=== PATIENT | female | born 1970 | race African-American/Black ===

== ENCOUNTER 2017-04-27 11:25 | Emergency (ER) | payer SELFPAY ==
[~2017-04-27] VITALS: Ht 162.6 cm; Wt 104.3 kg
[~2017-04-27 11:25] MED LIST: CYCLOBENZAPRINE10 MG ORAL; IBUPROFEN800 MG ORAL
[2017-04-27] MEDS ORDERED: PROAIR HFA8.5 GM INH (11:50)
[2017-04-27] MEDS ORDERED: Ketorolac 30mg Inj IM ONE (12:15)
[2017-04-27] MEDS ORDERED: ROBAXIN-750750 MG PO (12:16)
[2017-04-27] MEDS ORDERED: NAPROXEN500 M2 ORAL (12:16)
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
[2017-04-27 12:30] VITALS: BP_SYST 122; BP_SYST 132; BP_DIAS 85
== END 2017-04-27 12:30 | disposition home or self-care (01) ==
LOC: EMR 12:10
DX: S16.1XXA Strain of muscle, fascia and tendon at neck level, initial encounter (principal); S39.012A Strain of muscle, fascia and tendon of lower back, initial encounter; V43.52XA Car driver injured in collision with other type car in traffic accident, initial encounter; Y93.9 Activity, unspecified; Y92.410 Unspecified street and highway as the place of occurrence of the external cause; M62.830 Muscle spasm of back
CPT/HCPCS: 96372; 99284; J1885

== ENCOUNTER 2017-11-11 05:55 | Emergency (ER) | payer MEDICAID ==
[~2017-11-11] VITALS: Ht 160 cm; Wt 120.2 kg
[~2017-11-11 05:55] MED LIST changes: +NAPROXEN500 M2 ORAL; +PROAIR HFA8.5 GM INH; +ROBAXIN-750750 MG PO
[2017-11-11 06:39] VITALS: BP 126/80
[2017-11-11] MEDS ORDERED: PEROXIDE SORE236 ML MM (06:39)
[2017-11-11] MEDS ORDERED: IBUPROFEN600 MG ORAL (06:39)
--- NOTE | 2017-11-11 06:40 | Emergency Room Report ---
History of Present Illness General Chief Complaint: Sore Throat Source: Patient, Medical Record Present Illness HPI Is a 47-year-old female with no significant past medical history. She presents with chief complaint of sore throat. Onset this morning when she woke up. She has chronic sinus congestion. No cough or fever or chills. No chest pain. Has abdominal cramps her menstrual. Pain is 7/10. Allergies: Coded Allergies: No Known Allergies (Unverified , 06/21/16) Patient History Past Medical History: see triage record, old chart reviewed Past Surgical History: other Pertinent Family History: none Social History: Denies: smoking Last Menstrual Period: 11/11/17 Now: No : 5 Para: 5 Immunizations: other Reviewed Nursing Documentation: PMH: Agreed, PSxH: Agreed Nursing Documentation-PMH Hx Asthma: Yes Review of Systems Eye: Denies: eye pain, blurred vision ENT: Reports: throat pain, Denies: ear pain, nose congestion, throat swelling Respiratory: Denies: cough, shortness of breath Cardiovascular: Denies: chest pain, palpitations Gastrointestinal: Denies: abdominal pain, diarrhea, nausea, vomiting Musculoskeletal: Denies: back pain, joint pain Skin: Denies: rash Neurological: Denies: headache, numbness Endocrine: Denies: increased thirst, increased urine Hematologic/Lymphatic: Denies: easy bruising All Other Systems: negative except mentioned in HPI Physical Exam Vital Signs Date Time Temp Pulse Resp B/P (MAP) Pulse Ox O2 Delivery O2 Flow Rate FiO2 11/11/17 06:19 97.9 78 20 126/80 97 Room Air vitals normal Sp02 EP Interpretation: reviewed, normal General Appearance: well appearing, no apparent distress, alert Head: normocephalic, atraumatic Eyes: bilateral eye PERRL, bilateral eye EOMI ENT: hearing grossly normal, other - Patient with small pimply lesion on soft and hard palate. No tonsillar exudates. No trismus. Neck: full range of motion, supple, no meningismus Respiratory: chest non-tender, lungs clear, normal breath sounds Cardiovascular #1: regular rate, rhythm, no murmur Gastrointestinal: normal bowel sounds, non tender, no mass, no organomegaly, no bruit, non-distended Musculoskeletal: back normal, gait/station normal, normal range of motion Psychiatric: mood/affect normal Skin: warm/dry Medical Decision Making Diagnostic Impression: Primary Impression: Herpangina ER Course Patient presents with a viral illness. No evidence of bacterial infection. We' ll discharge him. Last Vital Signs Date Time Temp Pulse Resp B/P (MAP) Pulse Ox O2 Delivery O2 Flow Rate FiO2 11/11/17 06:19 97.9 78 20 126/80 97 Room Air Status: unchanged Disposition: HOME, SELF-CARE Condition: Stable Scripts Hydrogen Peroxide (Peroxide Sore Mouth Cleanser) 236 Ml Solution 20 ML MM TID, #240 ML Prov: FOREIGN PAULINO M.D. 11/11/17 Ibuprofen* (MOTRIN*) 600 Mg Tablet 600 MG ORAL THREE TIMES A DAY, #30 TAB 0 Refills Prov: FOREIGN PAULINO M.D. 11/11/17 Additional Instructions: Followup with your Dr. in 7 days. Return if symptom worsen. FOREIGN PAULINO M.D. Nov 11, 2017 06:40
== END 2017-11-11 06:45 | disposition home or self-care (01) ==
LOC: EMR 06:31
DX: B08.5 Enteroviral vesicular pharyngitis (principal); J45.909 Unspecified asthma, uncomplicated
CPT/HCPCS: 99283

== ENCOUNTER → 2019-01-27 | Emergency (ER) | payer MEDICAID ==
[~2019-01-27] VITALS: Ht 160 cm; Wt 136.1 kg
[~2019-01-27] MED LIST changes: +ALBUTEROL SULF8.5 GM INH; +Albuterol/Ipratropium 3ml neb HHN ONE; +Benzonatate 100mg Perles ORAL ONE; +IBUPROFEN600 MG ORAL; +PEROXIDE SORE236 ML MM; +PREDNISONE20 MG ORAL; +TESSALON PERLE100 MG ORAL
--- NOTE | 2019-01-27 12:29 | NUR ---
ED Nurse Note: PT WALKED IN TO ER TODAY FROM HOME. AOX4. PT C/O PERSISTENT, PAINFUL, NONPRODUCTIVE COUGH X 4 DAYS. PT DENIES ANY PAIN AT REST. LUNG SOUNDS CLEAR IN ALL LOBES. NO SIGNS OF RESPIRATORY DISTRESS OR RETRACTIONS NOTED. RR18 @ 98% O2 SATURATION ON RA.
[2019-01-27 12:31] VITALS: BP 126/74
--- NOTE | 2019-01-27 12:35 | NUR ---
ED Nurse Note: RT CALLED FOR BREATHING TX.
--- NOTE | 2019-01-27 12:41 | Emergency Room Report ---
History of Present Illness General Chief Complaint: Upper Respiratory Illness Source: Patient Present Illness HPI 48-year-old female patient presents ER complaining of cough times 4 days. Reports chest itchiness and pain with cough. Reports cough with sputum. Denies hemoptysis. Denies recent travel outside the country. Reports shortness of breath during this time. Reports history of asthma and bronchitis , states that she was using her inhaler with mild relief of symptoms. Reports has not been taking any medications. Denies fever. Denies history of heart attack or stroke. Denies calf pain. Denies recent periods of immobilization. Reports up-to-date on vaccinations. Reports similar symptoms approximately 2 weeks ago, states that she had a cough for 1 month during that time. Denies history of heart disease. Denies other aggravating or relieving factors. States that she does not like taking medications at home for relief of symptoms. Patient is requesting work note. Denies injury or accident. Allergies: Coded Allergies: No Known Allergies (Unverified , 06/21/16) Patient History Past Medical History: see triage record Reviewed Nursing Documentation: PMH: Agreed; PSxH: Agreed Nursing Documentation-PMH Past Medical History: No History, Except For Hx Asthma: Yes Review of Systems All Other Systems: negative except mentioned in HPI Physical Exam Vital Signs Date Time Temp Pulse Resp B/P (MAP) Pulse Ox O2 Delivery O2 Flow Rate FiO2 01/27/19 12:22 98.2 105 20 120/70 96 Room Air Sp02 EP Interpretation: reviewed, normal General Appearance: well appearing, no apparent distress, alert, GCS 15, non- toxic Head: normocephalic, atraumatic Eyes: bilateral eye normal inspection, bilateral eye PERRL ENT: hearing grossly normal, normal pharynx, no angioedema, normal voice, TMs + canals normal, uvula midline, moist mucus membranes Neck: full range of motion, no meningismus, no bony tend Respiratory: lungs clear, no rhonchi, no respiratory distress, no accessory muscle use, no wheezing, decreased breath sounds, speaking full sentences, other Cardiovascular #1: regular rate, rhythm, no edema Musculoskeletal: back normal, digits/nails normal, gait/station normal, normal range of motion, non-tender Neurologic: alert, oriented x3, responsive, motor strength/tone normal, sensory intact Psychiatric: mood/affect normal Lymphatic: no adenopathy Medical Decision Making PA Attestation Dr. Walters is my supervising Physician whom patient management has been discussed with. Diagnostic Impression: Primary Impression: Bronchitis ER Course Pt presents to ED c/o cough and shortness of breath. DDX considered but are not limited to asthma, viral URI, influenza, bronchitis, pneumonia. On PE, chest is TTP; chest pain likely musculoskeletal in nature secondary to cough, does not require cardiac workup at this time. Patient instructed to take NSAIDs as needed for pain symptoms. VITAL SIGNS are WNL, patient is afebrile. Ordered breathing treatment and medication. ER COURSE Chest x-ray negative for acute disease, no consolidation consistent with pneumonia, does not require antibiotics at this time. ER precautions given. Patient provided with prednisone Duoneb breathing treatment provided. Following treatment patient states no longer having difficulty with breathing. Lung sounds improved. Patient is resting comfortably in no acute distress. DISCHARGE: -Rx given for Prednisone. -Rx provided for Albuterol MDI. -Rx provided for Tessalon Perles Rx provided for Motrin At this time pt is stable for d/c to home. Patient is resting comfortably in no acute distress, nontoxic appearing, able to answer questions without difficulty. Patient to take medications as instructed Will provide with patient care instructions and any necessary prescriptions. Care plan and follow-up instructions provided. Patient instructed to follow-up with primary care provider in 3 - 5 days. Patient questions asked and answered. Patient reports understanding and agreement to treatment plan. ER precautions given. Patient instructed to return to ER immediately for any new or worsening of symptoms including but not limited to increasing SOB, persistent fever. - Please note that this Emergency Department Report was dictated using [employer] worker technology software, occasionally this can lead to erroneous entry secondary to interpretation by the dictation equipment. Chest X-Ray Diagnostic Results Chest X-Ray Diagnostic Results : Chest X-Ray Ordered: Yes # of Views/Limited/Complete: 1 View Indication: Chest Pain EP Interpretation: Yes BEBA Xray: Interpretation reviewed, by supervising MD, and agrees with findings. Interpretation: no consolidation, no effusion, no pneumothorax, no acute cardiopulmonary disease Impression: No acute disease BEBA ScribKody Bellamy PA-C Last Vital Signs Date Time Temp Pulse Resp B/P (MAP) Pulse Ox O2 Delivery O2 Flow Rate FiO2 01/27/19 12:31 98 18 Room Air 01/27/19 12:31 98.4 126/74 98 Status: improved Disposition: HOME, SELF-CARE Condition: Stable Scripts Prednisone* (PREDNISONE*) 20 Mg Tablet 40 MG ORAL DAILY for 4 Days, #8 TAB Prov: Jeronimo Bellamy 01/27/19 Benzonatate* (TESSALON PERLE*) 100 Mg Capsule 100 MG ORAL THREE TIMES A DAY, #30 PERLE Prov: Jeronimo Bellamy 01/27/19 Ibuprofen* (MOTRIN*) 600 Mg Tablet 600 MG ORAL Q8H PRN for For Pain, #30 TAB 0 Refills Prov: Jeronimo Bellamy 01/27/19 Albuterol Sulfate* (ALBUTEROL SULFATE MDI*) 8.5 Gm Hfa.aer.ad 2 PUFF INH Q6H, #1 INH 0 Refills Prov: Jeronimo Bellamy 01/27/19 Referrals: NON PHYSICIAN (PCP) Patient Instructions: Acute Bronchitis, [id number], Costochondritis, Easy-to- Read, Nonspecific Chest Pain, [id number] Additional Instructions: Followup with primary care provider in 3 -5 days. Discussed referral to respiratory specialist. Take Tylenol or Motrin [id number] for pain and fever symptoms if they present. Take medications as directed. Patient questions asked and answered. ER precautions given, patient instructed to return to ER immediately for any new or worsening of symptoms. Jeronimo Bellamy Jan 27, 2019 12:41
[2019-01-27 13:48] VITALS: BP 126/74
--- NOTE | 2019-01-27 13:50 | NUR ---
discharged home with instruction and rx follow up with pmd .patient verbalize understanding
--- NOTE | 2019-01-27 15:27 | Diagnostic Imaging Report ---
Indication: Chest pain Technique: One view of the chest Comparison: none Findings: Lungs and pleural spaces are clear. Heart size is normal Impression: No acute process
== END | disposition home or self-care (01) ==
LOC: EMR 12:35
DX: J45.909 Unspecified asthma, uncomplicated (principal)
CPT/HCPCS: 71045; 94640; 99284; J7512; J7620